=== PATIENT | male | born 1960 | race Two or more races ===

== ENCOUNTER 2017-09-04 08:30 | Day surgery (SDC) | payer BC, OTHER ==
[2017-09-04] MEDS ORDERED: NA PHOSPHATE/BIPHOS 133 ML ENEMA PR (10:00)
[2017-09-04] MEDS ORDERED: MIDAZOLAM 1 MG/ML 2 ML INJ ×4 (10:48→10:49)
[2017-09-04] MEDS ORDERED: FENTAnyl 50 MCG/ML VIAL (10:49)
== END 2017-09-04 18:24 | disposition home or self-care (01) ==
LOC: GIL 08:30
DX: Z12.11 Encounter for screening for malignant neoplasm of colon (principal); K64.9 Unspecified hemorrhoids; E11.9 Type 2 diabetes mellitus without complications
CPT/HCPCS: 45381; 82962